=== PATIENT | male | born 1980 | race Caucasian/White ===

== ENCOUNTER 2021-08-24 18:19 | Emergency (ER) | payer BC ==
[2021-08-24] MEDS ORDERED: Ondansetron 4 MG Tab.DIS PO ONE (19:36)
[2021-08-24 20:45] LABS: CORONAVIRUS COVID-19 NAA POSITIVE (NEGATIVE)
[2021-08-24] MEDS ORDERED: Promethazine 25 MG/ML SDV IM ONE (21:31)
== END 2021-08-24 23:00 | disposition home or self-care (01) ==
LOC: SUPCPDRO 18:19 → JD.ED 18:19
DX: U07.1 COVID-19 (principal); I10 Essential (primary) hypertension; Z87.891 Personal history of nicotine dependence; Z88.6 Allergy status to analgesic agent
CPT/HCPCS: 0240U; 96372; 99284; A9270; J2550

== ENCOUNTER 2023-09-22 07:57 | Day surgery (SDC) | payer BC ==
[~2023-09-22 07:57] MED LIST: Ketorolac 30 MG/ML SDV ONE; Lidocaine 1% 5 ML VIAL ONE; Ondansetron 4 MG/2 ML SDV ONE; Propofol 200 MG/20 ML SDV ONE; Sodium Chloride 0.9% 10 ML Syringe FLUSH PRN; Sodium Chloride 0.9% 10 ML Syringe FLUSH SCH; Succinylcholine 200 MG/10 ML MDV ONE; fentaNYL 100 MCG/2 ML SDV ONE
[2023-09-22] MEDS: Lactated Ringers 1,000 ML IV SCH (08:15)
[2023-09-22] MEDS ORDERED: Propofol 200 MG/20 ML SDV ONE (08:25)
[2023-09-22] MEDS ORDERED: HYDROmorphone 0.5 MG/0.5 ML Syringe IVPUSH PRN (08:31)
[2023-09-22] MEDS ORDERED: Ondansetron 4 MG/2 ML SDV IVPUSH PRN (08:31)
[2023-09-22] MEDS ORDERED: Naloxone 0.4 MG/ML SDV IVPUSH PRN (08:31)
[2023-09-22] MEDS ORDERED: fentaNYL 100 MCG/2 ML SDV IVPUSH PRN (08:31)
[2023-09-22] MEDS ORDERED: ceFAZolin 2 GM Vial ONE (11:29)
[2023-09-22] MEDS: Lidocaine 1% 30 ML SDV ONE (11:35)
[2023-09-22] MEDS ORDERED: Lactated Ringers 1,000 ML ONE (11:35)
[2023-09-22] MEDS: EPINEPHrine 1 MG/ML SDV ONE (11:35)
== END 2023-09-22 14:40 | disposition home or self-care (01) ==
LOC: JD.SDS 07:57
PROVIDERS: ATTEND Student in an Organized Health Care Education/Training Program
DX: D17.0 Benign lipomatous neoplasm of skin and subcutaneous tissue of head, face and neck (principal); I10 Essential (primary) hypertension; Z86.16 Personal history of COVID-19; Z79.899 Other long term (current) drug therapy; Z87.891 Personal history of nicotine dependence
CPT/HCPCS: 21012; J0171; J0330; J0690; J1885; J2405; J2704; J3010; J7120; 00300; J3490